=== PATIENT | male | born 1975 | race Caucasian/White ===

== ENCOUNTER 2016-08-29 15:13 | Day surgery (SDC) | payer OTHER ==
[2016-08-29] MEDS ORDERED: NO HOME MEDICATION XX (17:05)
[2016-08-29 17:56] LABS: BASO % 0.2 % (0-2); EOS % 0.2 % (0-7); HCT-HEMATOCRIT 42.8 % (36.0-53.5); HGB-HEMOGLOBIN 14.7 gm/dl (13.5-17.0); IMMATURE GRANULOCYTES ABSOLUTE 0.02 tho/cmm (0-0.03); IMMATURE GRANULOCYTES PERCENT 0.2 % (0-0.3); LYMPH % 13.7 % (20-45); LYMPH ABSOLUTE COUNT 1.4 tho/cmm (0.8-4.5); MCH (MEAN CORPUSCULAR HGB) 28.1 pg (28.0-32.0); MCHC MEAN CORPUSCULAR HGB CONC 34.3 % (32.0-36.0); MCV (MEAN CELL VOLUME) 81.8 fl (82.0-96.0); MEAN PLATELET VOLUME 9.8 cmc (9.4-12.4); MONO % 7.6 % (0-12); MONOCYTE ABSOLUTE COUNT 0.8 tho/cmm (0.0-1.2); NEUTROPHILS % 78.1 % (40-80); PLATELET COUNT 223 tho/cmm (150-450); RED BLOOD COUNT 5.23 mil/cmm (4.40-5.70); RED CELL DISTRIBUTION WIDTH 13.1 % (12.4-16.4); WHITE BLOOD COUNT 10.2 tho/cmm (4.0-10.0)
[2016-08-29 18:10] LABS: ALBUMIN 3.7 g/dl (3.5-5.0); ALKALINE PHOSPHATASE 82 U/L (33-138); ALT/SGPT 43 U/L (12-78); ANION GAP 12 mmol/L (0-20); AST/SGOT 19 U/L (10-40); BILIRUBIN,TOTAL 0.4 mg/dl (0.0-1.5); BLOOD UREA NITROGEN 9 mg/dl (6-24); CALCIUM 8.9 mg/dl (8.5-10.5); CARBON DIOXIDE-VENOUS 26 mmol/L (22-32); CHLORIDE 105 mmol/l (96-110); GLUCOSE 115 mg/dL (70-110); LIPASE 83 U/L (73-393); SODIUM 139 mmol/L (135-145); eGFR VALUE FOR BLACK >90 mL/Min
[2016-08-29] MEDS ORDERED: COLACE100 M1 PO (22:57)
[2016-08-29] MEDS ORDERED: NORCO 5-325 TA1 EACH PO (22:58)
--- NOTE | 2016-08-30 09:10 | NUR ---
VIRTUAL CARE NOTE: ROUND ON PT AT [facility], PT RESTING ON BED, STATES DOING PRETTY GOOD POST-OP, TOLERATES PO WELL, PAIN CONTROLLED WITH ORAL PAIN PILLS. AT [facility]. PT AND READY FOR DISCHARGE TEACHING. INFORMATION GIVEN TO PT AND , ANSWERED THE QUESTIONS. PT AND DENIES ANY CONCERNS OR FURTHER QUESTIONS. 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
== END 2016-08-30 09:25 ==
LOC: EDMED 15:13 → EMR2 21:15 → PACU 21:18 → 5WD 21:51
PROVIDERS: Physician Assistant
PROC: 0DTJ4ZZ Resection of Appendix, Percutaneous Endoscopic Approach (ICD-10-PCS; principal; 2016-08-29)
DX: K35.80 Unspecified acute appendicitis (principal)
CPT/HCPCS: J1335; J1885; J2270; J2405; J7030; Q9967